=== PATIENT | male | born 1970 | race Caucasian/White ===

== ENCOUNTER → 2016-12-25 | Outpatient (CLI) | payer BC | LOC: RAD 09:13 | PROVIDERS: ATTEND Family Medicine | DX: R22.1 Localized swelling, mass and lump, neck (principal); R13.19 Other dysphagia | CPT/HCPCS: 70491; Q9967 ==

== ENCOUNTER 2017-01-14 18:13 | Emergency (ER) | payer BC ==
[~2017-01-14] VITALS: Ht 188 cm; Wt 100.0 kg
[~2017-01-14 18:13] MED LIST: B12/1TAB3 PO; CPR500T PO; CYAN10004 IJ; CYCL10TA45 PO; DEXT38GE12 PO; FLUT16SP NSEACH; HYDR-3062 PO; HYDR-3702 PO; HYDR-3811 PO; IBP200T PO; IBP800T PO; MULT-954 PO; NAPR220C11 PO; NAPR250T34 PO; OXYC1TAB5 PO; OXYC1TAB87 PO; PANT40TA3 PO
--- OUTSIDE RECORDS SUMMARY | 2017-01-14 18:17 | XMS REPORT | Continuity of Care Document ---
Author Author [facility] Organization [facility] Address Unknown Phone Unavailable Care Team Providers Care Die Hardener Name Role Phone Brad Roland PCP [phone] Source Comments Some departments are not documenting in the electronic medical record. If you do not see the information that you expected, contact Release of Information in the Health Information Management department at [phone] for further assistance in locating additional records.[facility] Active Allergies and Adverse Reactions Not on File Current Medications Not on file Active Problems Not on file Social History Tobacco Use Types Packs/Day Years Used Date Never Assessed Plan of Care Health Maintenance Due Date Last Done Comments Physical (Comprehensive) 1975 Exam Pertussis Vaccine 1979 Tetanus Vaccine 1985 Influenza Vaccine 07/09/2015 Results from Last 3 Months Not on file
--- OUTSIDE RECORDS SUMMARY | 2017-01-14 18:17 | XMS REPORT | Continuity of Care Document ---
Author Author [facility] Organization [facility] Address Unknown Phone Unavailable Care Team Providers Care Software Security Consultant Name Role Phone Brad Roland PCP [phone] Source Comments Some departments are not documenting in the electronic medical record. If you do not see the information that you expected, contact Release of Information in the Health Information Management department at [phone] for further assistance in locating additional records.[facility] Active Allergies and Adverse Reactions Not [...]
[2017-01-14] MEDS ORDERED: ONDANSETRON 2 MG/ML (Z0FRAN) 2 ML VIAL IV ONE ×2 (18:35→19:15)
--- NOTE | 2017-01-14 18:45 | NUR ---
PT ARRIVES BY PRIVATE CAR WITH FROM HOME TO BE SEEN AT 1813.. THIS RN CALLS FOR EMS ASSISTANCE TO EXTRACT FROM CAR. THIS RN HOLDS CSPINE UNTIL EMS ARRIVES & ASSISTS TO PLACE C COLLAR. MORE EMS STAFF REQUESTED. WHEN FURTHER EMS STAFF ARRIVE, PT KEPT IN SPINAL ALIGNMENT TO PLACE SPINE BOARD FOR EXTRACTION. PT ANSWERING QUESTIONS WITH SHORT WORDS, MOANING. PT NOT ACTUALLY INTO ED UNTIL 1839 & GOES STRAIGHT TO CT FROM LOT. CL
[2017-01-14 19:10] LABS: BASOPHILS % (AUTO) 0 % (0-2); EOSINOPHILS # (AUTO) 0.2 10^3uL; EOSINOPHILS % (AUTO) 2 % (0-4); LYMPHOCYTES # (AUTO) 2.1 X10^3; MEAN CORPUSCULAR HEMOGLOBIN 31.3 PG (26.0-34.0); MEAN CORPUSCULAR HGB CONC 34.2 g/dL (31.0-37.0); MEAN CORPUSCULAR VOLUME 91 FL (80-100); MEAN PLATELET VOLUME 10.2 FL (6.0-9.5); MONOCYTES # (AUTO) 0.9 X10^3; MONOCYTES % (AUTO) 9 % (3-11); NEUTROPHILS # (AUTO) 6.7 X10^3; NEUTROPHILS % (AUTO) 68 % (51-67); PLATELET COUNT 300 10^3uL (150-450); WHITE BLOOD COUNT 9.89 10^3uL (4.0-11.0)
--- NOTE | 2017-01-14 19:12 | NUR ---
DR SCHNEIDER REQUESTS DR TONY COME TO SEE PT. CL
[2017-01-14] MEDS ORDERED: fentaNYL 100 MCG/2 ML VIAL IV ONE ×2 (19:15→21:05)
[2017-01-14] MEDS ORDERED: TETANUS & DIPHTHERIA TOXOIDS (Td) 0.5 ML (DECAVAC) VIAL IM ONE (19:15)
--- NOTE | 2017-01-14 19:16 | NUR ---
DR TONY HERE TO SEE PT. CL
[2017-01-14 19:17] LABS: ALBUMIN 4.3 g/dL (3.4-5.0); ANION GAP 16.2 MEQ/L (3-15); TOTAL PROTEIN 7.2 g/dL (6.4-8.5)
[2017-01-14 19:18] VITALS: RESP 24
--- NOTE | 2017-01-14 19:45 | NUR ---
PT IN CT FOR 2ND TIME PER NEW ORDER. CL
--- NOTE | 2017-01-14 19:51 | NUR ---
[facility] CALLS & GIVES REPORT TO DR TONY. CL
[2017-01-14] MEDS ORDERED: ENOXAPARIN 40 MG/0.4 ML (LOVENOX) SYR SC SCH (20:15)
[2017-01-14] MEDS ORDERED: KETOROLAC 30 MG/ML (TORADOL) 1 ML VIAL IV SCH (20:15)
[2017-01-14] MEDS ORDERED: HYDROmorphone PCA 30 MG/30 ML (DILAUDID) VIAL IV PRN (20:15)
[2017-01-14] MEDS ORDERED: ACETAMINOPHEN 325 MG TAB (TYLENOL) PO SCH (20:15)
[2017-01-14] MEDS ORDERED: TETANUS, DIPTHERIA, PERTUSSIS (ADACELL) VACCINE 0.5 ML VIAL IM ONE (20:40)
--- NOTE | 2017-01-14 21:40 | NUR ---
Pts family requested pt be transferred to [facility]. [place] accepted. Report called to Sherice Fontenot RN. EMS called to transport.
--- NOTE | 2017-01-14 21:49 | NUR ---
EMS loading pt for transport.
[2017-01-14 21:50] VITALS: BP 112/72
--- NOTE | 2017-01-15 07:53 | Diagnostic Imaging Report ---
PROCEDURE: CT head and CT cervical spine without contrast. TECHNIQUE: Multiple contiguous axial images were obtained through the brain and cervical spine without the use of intravenous contrast. Sagittal and coronal reformations through the cervical spine were then performed. INDICATION: Fall. Head CT compared 05/07/2014. Cervical imaging correlated with soft tissue neck CT 12/25/2016. CT head: There is no intracranial hemorrhage, hydrocephalus, edema, mass, or mass effect. No calvarial fracture deformity. No hemo-sinus apparent. No change when compared to previous study. No acute-appearing abnormality. Head is tilted to the right with rotation altering the C1-C2 articulation presumed on a positional basis; however, if there is upper cervical pain, consider repeat exam with the absence of rotation. There is also some positional rightward convexity curvature to the cervical spine limiting evaluation of the reconstruction views. No miriam listhesis or dislocation. The vertebral statures appeared normal. No acute or suspicious endplate irregularity. There is a small amount of soft tissue gas dissecting along the left back. There are irregularities to the visualized medial third of the left clavicle extending outside the [id number] with some adjacent soft tissue hematoma. A cervical spinal fracture could not be identified. IMPRESSION: CT head: No acute intracerebral pathology or change from prior. CT cervical spine: Limited by rotation of the head as well as positional scoliosis. No appreciable cervical fracture or dislocation, however, if persistent neck pain in the setting of trauma, consider short-term followup with attention to anatomical positioning. Probable left clavicular fracture partly visualized with subcutaneous emphysema dissecting along the upper back. Agree with preliminary. Dictated by: Dictated on workstation # [id number]
--- NOTE | 2017-01-15 08:00 | Diagnostic Imaging Report ---
PROCEDURE: CT chest, abdomen, and pelvis without contrast. TECHNIQUE: Multiple contiguous axial images were obtained through the chest, abdomen, and pelvis without the use of intravenous contrast. INDICATION: Trauma. Chest: Best seen on the sagittal reconstruction views, a subtle nondisplaced fracture of the upper sternum extending at least through its posterior cortex with mild retrosternal hematoma. There are comminuted fractures of the medial third of the left clavicle with adjacent hematoma and swelling. Fractures of left ribs involve the second through eighth levels. The third, fourth, fifth, sixth, and seventh rib fractures are displaced and partly overriding. There is adjacent subpleural hematoma and mild peripheral lower greater than upper lobe subpleural lung contusion with minimal anterobasilar pneumothorax of less than 10%. No periaortic hematoma. No pericardial effusion or fluid. No paratracheal or paraesophageal mediastinal air. There is a small amount of subcutaneous emphysema dissecting along the left back superiorly and lateral chest wall. There is dependent bibasilar partial atelectasis. No findings of a pneumatocele. Abdomen/ pelvis: There is no abdominal/ pelvic free fluid or findings of hemoperitoneum. No mesenteric or bowel wall hematoma. Liver appeared unremarkable. There is no adrenal hematoma. The kidneys unobstructed. The abdominal aorta is nonaneurysmal. No periaortic or dada-iliac hematoma. No retroperitoneal blood. The osseous structures of the pelvis revealed no acute-appearing abnormality. IMPRESSION: Chest: Multiple consecutive left rib fractures several of which are displaced. Peripheral airspace opacity in the left lower greater than upper lobes likely contusive changes with dependent atelectasis, small left-sided subpleural hematoma, tiny pneumothorax, and mild subcutaneous emphysema. No mediastinal air. Nondisplaced sternal fracture superiorly involves at least its posterior cortex. There are comminuted fractures of the medial third of the left clavicle with adjacent hemorrhage. No periaortic or pericardial blood. Abdomen/ pelvis: No hemoperitoneum, obstructive features, free air, or pelvic fracture demonstrated. Agree with the preliminary. Dictated by: Dictated on workstation # [id number]
--- NOTE | 2017-01-15 08:01 | Diagnostic Imaging Report ---
INDICATION: Trauma. Portable chest 7:53 PM. There appear to be fractures in the left thoracic cage. There are fractures of at least the left fifth through eighth ribs and probably also of the second, third, and fourth ribs. There is no appreciable effusion or pneumothorax. There is slight increased density in the left lung which may be contusion. IMPRESSION: Multiple left rib fractures with suspected pulmonary contusion. Dictated by: Dictated on workstation # [id number]
--- NOTE | 2017-01-15 08:37 | HISTORY AND PHYSICAL ---
HISTORY CHIEF COMPLAINT: Fall from roof HISTORY OF PRESENT ILLNESS: The patient is a 46-year-old who fell from a metal roof at his residence this evening, and was brought in by private vehicle. His and 2 of his children are at his bedside, and the history is obtained from the patient's . Apparently he was able to crawl a short distance after the fall, and somehow was able to make it to the vehicle. When he arrived here, he was placed on a spine board and a C-collar was applied to his neck. He is obviously intoxicated. He arrived complaining of pain from head to toe, and by the time I was called he was already in the CT scanner. He has had a CT of his head, C-spine, chest, abdomen, and pelvis, as well as CT of the thoracic and lumbar spine, which was just completed. The initial CT scans show a normal head with a question of subluxation at C1, but this most likely represents the patient's positioning during the exam. There was no fracture of the cervical spine. He has several rib fractures on the left side in ribs 2 through 8 with displacement of 2 of these. He has a left clavicular fracture and a sternal fracture. The CT of the abdomen and pelvis were unremarkable. PAST MEDICAL HISTORY: Unknown. PAST SURGICAL HISTORY: He has had orthopedic surgery on his right shoulder and left knee. ALLERGIES: Soy CURRENT MEDICATIONS: His reports that the patient does take several medications and the ones listed on the EMR include: 1. Vitamin B12. 2. [place]. 3. Ibuprofen 4. Multivitamin 5. Naproxen 6. Percocet 7. Pantoprazole. SOCIAL HISTORY: He does drink alcohol on a regular basis and his reports that he had "5 or 6" tonight. He does not smoke. He has been working on a renovation at their house. REVIEW OF SYSTEMS: Unobtainable. PHYSICAL EXAM VITAL SIGNS: Temperature 97.6 on admission. Pulse was 82, respirations 28, blood pressure 127/79. O2 sats were 82% on room air, but on O2 mask were 100%. GENERAL: The patient is obtunded and responds very weakly to any questions. I had a hard time understanding his speech and I would score his GCS at 11. HEENT: No otorrhea or rhinorrhea. There are no lacerations or abrasions on his face. NECK: The C-collar was left in place. The CT scan findings were described above. LUNGS: Breath sounds bilaterally. HEART: S1, S2 regular rate and rhythm. ABDOMEN: Soft and mildly tender, but no focal tenderness, guarding or rebound tenderness. EXTREMITIES: No external signs of trauma or deformity. SKIN: Warm and dry. NEURO: As above. He does move all 4 extremities to command, though obviously has difficulty moving his left arm as a result of his clavicular fracture and rib fractures on that side. LABORATORY: Hemoglobin is 15.5, electrolytes were unremarkable. Serum alcohol is 216.0. IMAGING: As above. ASSESSMENT: 1. Traumatic fall from roof. 2. Sternal fracture, left clavicular fracture, and multiple left-sided rib fractures. 3. Alcohol intoxication. PLAN: He will be admitted for observation and pain control. I will consult orthopedic surgery tomorrow regarding his clavicular fracture, and keep him in a sling this evening. I will also discuss the C-spine films tomorrow with the radiologist who is here.
--- NOTE | 2017-01-15 10:31 | Diagnostic Imaging Report ---
INDICATION: Trauma, fall from roof. Axial CT thoracolumbar spine performed with sagittal and coronal reconstructions. T-spine: Fracture at the left fourth, the fifth, and the sixth thoracic transverse processes. Contralateral right transverse processes at these levels and elsewhere appeared intact. The reconstruction views revealed the thoracic vertebral body heights to be unremarkable and no acute endplate irregularity. No retropulsion. No defect to the pedicles. No laminar fracture. The facet relationships, aside from mild degenerative change, appeared otherwise unremarkable. No dislocation of the costovertebral junctions. Additional findings have been discussed on separately performed chest CT. Presumed bone island in the right L1 pedicle noted. Lumbar spine: Lumbar vertebral body statures normal. No acute or suspicious endplate irregularity. The pedicles and pars were intact. The lumbar transverse processes and spinous processes intact. No fracture or paravertebral hematoma. No high-grade canal stenosis. IMPRESSION: T-spine: Left-sided fourth through sixth thoracic transverse process fractures. No other thoracic spinal injury. L-spine: No lumbar spinal fracture or traumatic malalignment. Agree with the preliminary. Dictated by: Dictated on workstation # [id number]
[2017-01-27] MEDS ORDERED: LACT-157 PO (12:34)
== END 2017-01-14 20:20 | disposition short-term general hospital (02) ==
LOC: ED 18:14 → MED/SURG 20:13 → UNDOADMIN 20:13 → MED/SURG 20:14 → ICU 20:29 → MED/SURG 20:29 → UNDODISIN 22:00
DX: S22.42XA Multiple fractures of ribs, left side, initial encounter for closed fracture (principal); S22.20XA Unspecified fracture of sternum, initial encounter for closed fracture; S42.002A Fracture of unspecified part of left clavicle, initial encounter for closed fracture; F10.920 Alcohol use, unspecified with intoxication, uncomplicated; W13.2XXA Fall from, out of or through roof, initial encounter; Y93.H3 Activity, building and construction; Y92.008 Other place in unspecified non-institutional (private) residence as the place of occurrence of the external cause
CPT/HCPCS: 36415; 70450; 71010; 71250; 72125; 72128; 72131; 74176; 80053; 80320; 83690; 85025; 90715; 96361; 96374; 96375; 99285; J2405; J3010; J7030; 99291

== ENCOUNTER → 2017-01-14 | Outpatient (CLI) | payer BC | LOC: EMS 21:45 | PROVIDERS: ATTEND Family Medicine | DX: S22.42XA Multiple fractures of ribs, left side, initial encounter for closed fracture (principal); S22.20XA Unspecified fracture of sternum, initial encounter for closed fracture; S22.049A Unspecified fracture of fourth thoracic vertebra, initial encounter for closed fracture; S22.059A Unspecified fracture of T5-T6 vertebra, initial encounter for closed fracture; S42.002A Fracture of unspecified part of left clavicle, initial encounter for closed fracture; W13.2XXA Fall from, out of or through roof, initial encounter; Y93.89 Activity, other specified; Y92.008 Other place in unspecified non-institutional (private) residence as the place of occurrence of the external cause; I51.7 Cardiomegaly ==

== ENCOUNTER → 2017-01-25 | Outpatient (CLI) | payer BC | LOC: RAD 14:35 | PROVIDERS: ATTEND Family Medicine | DX: S22.42XA Multiple fractures of ribs, left side, initial encounter for closed fracture (principal); R06.02 Shortness of breath; J90 Pleural effusion, not elsewhere classified; W13.2XXA Fall from, out of or through roof, initial encounter | CPT/HCPCS: 71020 ==

== ENCOUNTER 2017-01-27 12:17 | Day surgery (SDC) | payer BC ==
[~2017-01-27] VITALS: Ht 188 cm; Wt 95.9 kg
[2017-01-27 12:25] VITALS: BP 125/84
--- NOTE | 2017-01-27 13:41 | NUR ---
upon examination Dr. Martini decided not to do anything. orders were given to dismiss patient. patient was given oj and Iv was removed with tip in tact and discharged.
== END 2017-01-27 13:40 | disposition home or self-care (01) ==
LOC: ASC 12:17 → EDSTATUS 13:30 → ASC 13:40
PROVIDERS: ATTEND Surgery
DX: J90 Pleural effusion, not elsewhere classified (principal); Z53.8 Procedure and treatment not carried out for other reasons
CPT/HCPCS: 36415; 85610; 85730